=== PATIENT | female | born 1960 ===

== ENCOUNTER 2023-10-25 08:49 | Outpatient (REF) | payer OTHER, SELFPAY | END 2023-10-25 08:50 | disposition home or self-care (01) | LOC: HO.SH 08:49 | PROVIDERS: Visit Provider Physician Assistant Medical | DX: Z01.118 Encounter for examination of ears and hearing with other abnormal findings (principal); H90.3 Sensorineural hearing loss, bilateral | CPT/HCPCS: 92557; 92567 ==

== ENCOUNTER 2024-06-05 08:11 | Outpatient (REF) | payer OTHER, SELFPAY ==
--- NOTE | 2024-06-05 09:35 | MHC.AU.HA1 ---
Hearing Aid Evaluation Date of Visit: 06/05/24 Historical Information: Description of Hearing: Right Ear: Within normal sloping to moderate sensorineural hearing loss rising to normal hearing; Left Ear: Within normal sloping to mild sensorineural hearing loss rising to normal hearing Summary: Ready to pursue amplification. HAs recommended many years ago; however, not ready at that time. Now noticing increasing hearing difficulties, frequently asking for repetition or speakers to talk louder, uses CC on television. Still unsure about TOWNSEND use but hoping HAs will ease some communication difficulties. Discussed importance of daily, consistent use as Lolita is hesitant to wear HAs out due to vanity concerns. Opted to trial rechargeable RITE compatible with Android phone. Hearing Aid Prescription: Based on the individual?s shared listening needs, communication environments, dexterity, desire for connectivity, and personal preferences, the following prescription for amplification has been made: Right ear: Make, Model, Color: Phonak Audeo L70-R Color: Sun Battery Size: Rechargeable Senior Property Accountant/Slim Tube: 2M Type of Earmold/Dome/CShell/SlimTip: Cap dome Left ear: Left ear prescription to be same as Right Hearing Aid above: Make, Model, Color: Phonak Audeo L70-R Color: Sun Battery Size: Rechargeable Senior Property Accountant/Slim Tube: 2M Type of Earmold/Dome/CShell/SlimTip: Cap dome Accessories/Assistive Technology: Pattern Clerk Plan of Care: Patient wishes to purchase hearing aids as prescribed Action Taken/Action Needed: Hearing Instrument Fitting to be scheduled when materials arrive Primary Diagnosis: H90.3 Bilateral Sensorineural Hearing Loss Signature: Provider: Todd Orellana, [facility]
== END 2024-06-05 08:12 | disposition home or self-care (01) ==
LOC: HO.SH 08:11
PROVIDERS: Visit Provider Physician Assistant Medical
DX: Z01.118 Encounter for examination of ears and hearing with other abnormal findings (principal); Z46.1 Encounter for fitting and adjustment of hearing aid; H90.3 Sensorineural hearing loss, bilateral
CPT/HCPCS: 92552; 92556; 92591

== ENCOUNTER 2024-06-18 12:47 | Outpatient (REF) | payer OTHER, SELFPAY ==
--- NOTE | 2024-06-18 13:35 | MHC.AU.HA2 ---
Hearing Instrument Fitting- Adult- Binaural Date of Visit: 06/18/24 Hearing Instruments Dispensed: Right Ear: Make, Model, Color, Serial Number: David Waller [id number]-[id number] SN: [id number] Color: White Nurse Monitoring Repair Warranty: 07/04/2027 Nurse Monitoring Loss and Damage Warranty: 07/04/2027 [facility] Service Plan: 06/18/2025 Battery Size: Rechargeable Medical Device/Slim Tube: 1M Earmold/Dome/CShell/SlimTip: Cap dome (no retention tail) Type of Wax Guard: CeruStop Left Ear: Make, Model, Color, Serial Number: David Waller [id number]-[id number] SN: [id number] Color: White Nurse Monitoring Repair Warranty: 07/04/2027 Nurse Monitoring Loss and Damage Warranty: 07/04/2027 [facility] Service Plan: 06/18/2025 Battery Size: Rechargeable Medical Device/Slim Tube: 1M Earmold/Dome/CShell/SlimTip: Cap dome (no retention tail) Type of Wax Guard: CeruStop Accessories/Assistive Technology: Phonak In Store Banker Ease SN: [id number] Summary of Fitting: Accompanied by father. Ran feedback analyzer and real ear measures. Slightly loud but comfortable at real ear settings, will use VC as needed. Discussed care, use, and rechargeability including manually turning on/off, VC use, changing domes and wax guards. Practiced insertion and removal. Hesitant to fully insert - advised to minimize gap between head and nozzle worker wire. Did not discuss bluetooth yet, will do at follow up. Recommendations: A hearing instrument follow-up was scheduled. Diagnosis Code(s): Primary Diagnosis: H90.3 Bilateral Sensorineural Hearing Loss Signature: Provider: Todd Orellana, [facility]
== END 2024-06-18 12:48 | disposition home or self-care (01) ==
LOC: HO.HAP 12:47
PROVIDERS: Visit Provider Otolaryngology
DX: Z46.1 Encounter for fitting and adjustment of hearing aid (principal); H90.3 Sensorineural hearing loss, bilateral
CPT/HCPCS: V5011; V5020; V5160; V5261

== ENCOUNTER 2024-10-09 15:36 | Outpatient (REF) | payer OTHER, SELFPAY ==
--- OUTSIDE RECORDS SUMMARY | 2024-10-09 18:14 | XMS_ITS | Clinical Summary ---
Author Organization [facility] Address [address] [place] [address] Phone Care Team Providers Care Director Of Retail Marketing Name Role Phone Madelyn Hogan MD Primary Care Provider Allergies No known active allergies Medications polyethylene glycol (PEG) 17 gram/dose oral powder DISSOLVE 1 CAPFUL (17GM) IN LIQUID AND DRINK BY MOUTH DAILY 510 g 11 07/19/19 25 Active B complex tablet Take 1 tablet by mouth 1 (one) time each day. Active magnesium citrate 125 mg capsule Take 2 capsules by mouth 1 (one) time each day. Active clonazePAM (KlonoPIN) 1 mg tablet Take 1 tablet (1 mg total) by mouth 1 (one) time each day if needed for anxiety. Max Daily Amount: 1 mg 5 tablet 09/07/19 25 Active hydroCHLOROthi azide (MICROZIDE) 12.5 mg capsule Take 1 capsule (12.5 mg total) by mouth 1 (one) time each day in the morning. 90 capsule 1 09/20/19 25 Active amLODIPine (NORVASC) 5 mg tablet Take 1 tablet (5 mg total) by mouth 1 (one) time each day. 09/25/19 25 025 Active amLODIPine (NORVASC) 5 mg tablet Take 1 tablet (5 mg total) by mouth 1 (one) time each day. 90 tablet 06/20/19 25 025 Discontinued hydroCHLOROthi azide (MICROZIDE) 12.5 mg capsule Take 1 capsule (12.5 mg total) by mouth 1 (one) time each day in the morning. 90 capsule 06/20/19 25 025 Discontinued(Re order) docusate sodium (COLACE) 100 mg capsule Take 1 capsule (100 mg total) by mouth 2 (two) times a day for 10 days. 09/07/19 25 025 buPROPion (WELLBUTRIN) 75 mg tabletIndicati ons:Chronic anxiety Take 0.5 tablets (37.5 mg total) by mouth 1 (one) time each day. 15 tablet 09/07/19 25 025 Discontinued amLODIPine (NORVASC) 10 mg tablet Take 1 tablet (10 mg total) by mouth 1 (one) time each day. 30 each 5 09/11/19 025 Discontinued(Th erapy completed) Active Problems Problem Noted Date Diagnosed Date Pain associated with defecation 02/24/2023 Hyperlipidemia 08/31/2020 Overview (05/28/2024): 5%, if smoking continues- 10.3% Pulmonary nodule 12/07/2017 Overview (05/28/2024): RLL, LungRad Category 2, 10/07/2016 Lung CA Screen Program, continue annual screening. Anxiety 09/29/2017 Overview (05/28/2024): Panic disorder 07/14/2017 HTN (hypertension) 09/29/2017 Overview (05/28/2024): Ascvd 2.4% Encounters Date Type Department Care Team Description 09/24/2024 2:00 PM EDT Office Visit Adult [address] [phone] Mdaelyn Hogan MD Chronic anxiety (Primary Dx); Primary hypertension 09/10/2024 3:15 PM EDT Office Visit Adult [address] [phone] John Hoffmann PA Primary hypertension (Primary Dx); Anxiety 09/09/2024 Telephone Adult [address] [phone] Madelyn Hogan MD Hypertension 09/06/2024 11:15 AM EDT Office Visit Adult Medicine [facility] [address] [place] [phone] Madelyn Hogan MD Primary hypertension (Primary Dx); Chronic anxiety; Osteopenia, unspecified location; Dense breast tissue on mammogram, unspecified type; Chronic constipation 08/01/2024 10:30 AM EST Consult Endocrinology [address] [phone] Ryan Price MD Osteopenia, unspecified location (Primary Dx) from Last 3 Months Immunizations Name Administration Dates Next Due Influenza Quadrivalent, 0.5m l, preservative free (Fluarix; FluLaval; Fluzone) ages 6mo and older (Afluria) 3yo and older 04/21/2020 Influenza Whole 03/31/2010,03/24/2008,05/25/2007 Influenza trivalent, 0.5mL, preservative free (Fluarix; FluLaval; Fluzone) ages 6mo and older (Afluria) 3 years and older 04/21/2020,07/08/2016,03/11/2012 Influenza trivalent, with pr eservative (Fluzone; Afluria) 6mo and older 07/14/2017,07/08/2016,07/03/2015,05/01,04/19/2013,03/12/2012,03/11/2012 ,03/03/2011,05/19/2009 Influenza, Unspecified 03/31/2010,03/24/2008,12/2006 Pfizer SARS-CoV-2 COVID-19, mRNA, LNP-S, preservative free 06/15/2021 Pneumococcal polysaccharide 23 valent (Pneumovax 23) 2yo and older 11/13/2008 Tdap Tetanus diptheria acell ular pertussis (Boostrix; Adacel) 7yo and older 12/15/2017,07/14/2017,09/24/2007 Surgical History Surgery Date Site/Laterality Comments TUBAL LIGATION PROCEDURE: HISTORICAL TUBAL LIGATION TONSILLECTOMY PROCEDURE: HISTORICAL TONSILLECTOMY COLONOSCOPY 11/22/2010 PROCEDURE: HISTORICAL COLONOSCOPY; COMMENT: neg, repeat 10 yrs SECTION PROCEDURE: HISTORICAL DELIVERY Medical History Medical History Date Comments Pulmonary nodule 12/07/2017 DX:Pulmonary no dule; COMMENT: RLL, LungRad Category 2, 10/07/2016 Lung CA Screen Program, continue annual screening. 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 Hyperlipidemia DX:Hyperlipidemi a Family History Medical History Relation Name Comments Dementia Father Other: nephrolithiasis Father No Known Problems Maternal Grandfather Hypertension Maternal Grandmother Alzheim er's Disease Hypertension Mother afib Liver disease Paternal Grandfather ETOH Pancreatic cancer Paternal Grandmother Hypertension Sister 1 Relation Name Status Comments Father Alive Maternal Grandfather Maternal Grandmother Mother Alive Paternal Grandfather Paternal Grandmother Sister 1 Alive Sister 2 Alive Social History Tobacco Use Types Packs/Day Years Used Date Smoking Tobacco: Former Cigarettes Q uit: 01/17/2022 Smokeless Tobacco: Never Tobacco Cessation:Counseling Given: Not Answered Alcohol Use Standard Drinks/Week Comments Not Currently 0 (1 standard drink = 0.6 oz pur e alcohol) Comments No Sex and Gender Information Value Date Recorded Sex Assigned at Not on file Legal Sex Female 6:01 PM EST Gender Identity Not on file Sexual Orientation Not on file Obstetrics History Last Filed Vital Signs Vital Sign Reading Time Taken Comments Blood Pressure 124/76 09/24/2024 2:05 PM EDT Pulse 68 09/24/2024 2:05 PM EDT Temperature 36.3 ??C (97.4 ??F) 09/24/2024 2:05 PM ED T Respiratory Rate 16 09/24/2024 2:05 PM EDT Oxygen Saturation 97% 08/01/2024 10:26 AM EST Inhaled Oxygen Concentration - - Weight 70.3 kg (155 lb) 09/24/2024 2:05 PM EDT Height 165 cm (5' 4.96 ) 09/24/2024 2:05 PM EDT Body Mass Index 25.82 09/24/2024 2:05 PM EDT Plan of Treatment Upcoming Encounters Date Type Department Care Team (Late st Contact Info) Description 10/24/2024 3:30 PM EDT Office Visit Adult Medicine [facility] [address] [place] [phone] Madelyn Hogan MD [address] [place] [address] 01/03/2025 10:00 AM EDT Office Visit Adult Medicine [facility] [address] [place] [phone] John Granados PA [address] [place] [address] Health Maintenance Due Date Last Done Comments Pneumococcal Vaccine: 50+ Years (2 of 2 - PCV) 2010 11/13/2008 Zoster Vaccines (1 of 2) 2010 HIV Screening 05/28/2022 Social Influencers of Health Screening 05/28/2022 COVID-19 Vaccine ( - season) 2024 06/15/2021, 08/18/2020, 07/25/2020 Depression Screening 12/14/2024 12/15/2023 Influenza Vaccine (Season Ended) 2025 04/21/2020, 04/21/2020, 07/14/2017, Additional history exists Hypertension/CHF/CAD Annual BMP Blood Test 09/10/2025 09/10/2024, 08/07/2024, 12/15/2023, Additional history exists Cervical Cancer Screening: HPV 05/10/2026 05/10/2021 Breast Cancer Screening 08/20/2026 08/20/2024 DTaP,Tdap,and Td Vaccines (4 - Td or Tdap) 12/16/2027 12/15/2017, 07/14/2017, 09/24/2007 Cholesterol Screening (Lipid Panel) 09/10/2029 09/10/2024, 12/15/2023, 12/15/2023 Colorectal Cancer Screening: Colonoscopy 03/07/2033 03/07/2023 RSV Immunization Adult Patients (1 - 1-dose 75+ series) 2035 Pneumococcal Vaccine: Pediatrics (0 to 5 Years) and At-Risk Patients (6 to 64 Years) Aged Out 11/13/2008 No longer eligible based on patient's age to complete this topic Hepatitis C Screening Completed 11/03/2017 HIB Vaccines Aged Out No longer eligi ble based on patient's age to complete this topic HPV Vaccines Aged Out No longer eligi ble based on patient's age to complete this topic Hepatitis A Vaccines Aged Out No long er eligible based on patient's age to complete this topic Hepatitis B Vaccines Aged Out No long er eligible based on patient's age to complete this topic IPV Vaccines Aged Out No longer eligi ble based on patient's age to complete this topic MMR Vaccines Aged Out No longer eligi ble based on patient's age to complete this topic Meningococcal ACWY Vaccine Aged Out N o longer eligible based on patient's age to complete this topic Meningococcal B Vaccine Aged Out No l onger eligible based on patient's age to complete this topic RSV Immunization Patients Under 20 months Aged Out No longer eligible based on patient's age to complete this topic Varicella Vaccines Aged Out No longer eligible based on patient's age to complete this topic Procedures Procedure Name Priority Date/Time Associated Diagnosis Comments COMPREHENSIVE METABOLIC PANEL Routine 09/10/2024 11:01 AM EDT Primary hypertension LIPID PANEL WITH REFLEX TO DIRECT LDL Routine 09/10/2024 11:01 AM EDT Primary hypertension EXTERNAL MAMMOGRAM REPORT 08/20/2024 RI PROTEIN ELECTROPHORETIC FRACTIONATION & QUANTITATION SERUM Routine 08/07/2024 10:46 AM EST Osteopenia, unspecified location PROTEIN, TOTAL Routine 08/07/2024 10:46 AM EST Osteopenia, unspecified location CALCIUM, URINE, 24H Routine 08/07/2024 1 0:46 AM EST Osteopenia, unspecified location ALBUMIN Routine 08/07/2024 10:46 AM EST Osteopenia, unspecified location VITAMIN D 25 HYDROXY Routine 08/07/2024 10:46 AM EST Osteopenia, unspecified location PROTEIN ELECTROPHORESIS, SERUM Routine 08/07/2024 10:46 AM EST Osteopenia, unspecified location PARATHYROID HORMONE INTACT Routine 08/07/2024 10:46 AM EST Osteopenia, unspecified location BUN Routine 08/07/2024 10:46 AM EST Osteopenia, unspecified location CREATININE, SERUM Routine 08/07/2024 10: 46 AM EST Osteopenia, unspecified location CALCIUM Routine 08/07/2024 10:46 AM EST Osteopenia, unspecified location HM DEPRESSION SCREENING Routine 12/15/2023 HM COLONOSCOPY Routine 03/07/2023 HM HPV Routine 05/10/2021 HEPATITIS C SCREENING Routine 11/03/2017 from Last 3 Months or Most Recently Relevant to Health Maintenance Results * (ABNORMAL) Lipid panel with reflex to direct LDL (09/10/2024 11:01 AM EDT) Cholesterol 205(H) 0 - 200 mg/dL LAB CHEMISTRY METHOD 09/10/2024 4:21 PM EDT [facility] Triglycerides 86 0 - 150 mg/dL LAB CHEMISTRY METHOD 09/10/2024 4:21 PM EDT [facility] HDL 59 >=40 mg/dL LAB CHEMISTRY METHOD 09/10/2024 4:21 PM EDT [facility] LDL Calculated 129(H) 0 - 100 mg/dL LAB CHEMISTRY METHOD 09/10/2024 4:21 PM [facility] VLDL Cholesterol Jules 17.2 mg/dL LAB CHEMISTRY METHOD 09/10/2024 4:21 PM EDT [facility] Non HDL Chol. (LDL+VLDL) 146(H) <145 mg/dL LAB CHEMISTRY METHOD 09/10/2024 4:21 PM [facility] Chol/HDL Ratio 3.5 0.0 - 4.4 LAB CHEMISTRY METHOD 09/10/2024 4:21 PM [facility] Blood Venous blood specimen / Unknown Venipuncture / Unknown 09/10/2024 11:01 AM EDT 09/10/2024 11:01 AM EDT us Madelyn Hogan MD LAB BLOOD ORDERABLES F inal Result [facility] [address] [place] [address], * Comprehensive metabolic panel (09/10/2024 11:01 AM EDT) Sodium 136 133 - 145 mmol/L LAB CHEMISTRY METHOD 09/10/2024 4:21 PM [facility] Potassium 3.7 3.5 - 5.5 mmol/L LAB CHEMISTRY METHOD 09/10/2024 4:21 PM [facility] Chloride 102 96 - 110 mmol/L LAB CHEMISTRY METHOD 09/10/2024 4:21 PM [facility] CO2 27 21 - 32 mmol/L LAB CHEMISTRY METHOD 09/10/2024 4:21 PM [facility] Anion Gap 7 3 - 11 LAB CHEMISTRY METHOD 09/10/2024 4:21 PM [facility] Glucose 84 70 - 100 mg/dL LAB CHEMISTRY METHOD 09/10/2024 4:21 PM [facility] BUN 16 5 - 25 mg/dL LAB CHEMISTRY METHOD 09/10/2024 4:21 PM [facility] Creatinine 0.74 0.50 - 1.10 mg/dL LAB CHEMISTRY METHOD 09/10/2024 4:21 PM [facility] eGFR 90 >=60 mL/min/1. 73m2 LAB CHEMISTRY METHOD 09/10/2024 4:21 PM EDT [facility] Comment:Calculation based on the??Chronic Kidney Disease Epidemiology Collaboration (CKD-EPI) equation refit??without adjustment for race. BUN/Creatinine Ratio 21.6 LAB CHEMISTRY METHOD 09/10/2024 4:21 PM EDT [facility] Calcium 9.0 8.5 - 10.5 mg/dL LAB CHEMISTRY METHOD 09/10/2024 4:21 PM [facility] AST (SGOT) 15 10 - 42 unit/L LAB CHEMISTRY METHOD 09/10/2024 4:21 PM [facility] ALT (SGPT) 25 10 - 60 unit/L LAB CHEMISTRY METHOD 09/10/2024 4:21 PM [facility] Alkaline Phosphatase 69 42 - 121 unit/L LAB CHEMISTRY METHOD 09/10/2024 4:21 PM T [facility] Total Protein 7.1 6.0 - 8.0 g/dL LAB CHEMISTRY METHOD 09/10/2024 4:21 PM [facility] Albumin 4.3 3.2 - 5.0 g/dL LAB CHEMISTRY METHOD 09/10/2024 4:21 PM [facility] Total Bilirubin 0.6 0.0 - 1.4 mg/dL LAB CHEMISTRY METHOD 09/10/2024 4:21 PM [facility] Blood Venous blood specimen / Unknown Venipuncture / Unknown 09/10/2024 11:01 AM EDT 09/10/2024 11:01 AM EDT us Madelyn Hogan MD LAB BLOOD ORDERABLES F inal Result [facility] [address] [place] [address], * External Mammogram Report (08/20/2024) Anatomical Region Laterality Modality Mammography Provider [facility] BI PROCEDURES Final Result * PATHOLOGIST REVIEW PROTEIN ELECTROPHORESIS (08/07/2024 10:46 AM EST) Pathologist Interpretation Darcie Phillips MD 08/09/2024 2:30 PM EST [facility] Blood Venous blood specimen / Unknown Venipuncture / Unknown 08/07/2024 10:46 AM EST 08/07/2024 10:46 AM EST Ryan Price MD LAB BLOOD ORDERABLES Final Resul t Performing Organization Address [facility]/ZIP Co de Phone Number [facility] [address] [place] [address], [place] [phone] * Calcium, urine, 24H (08/07/2024 10:46 AM EST) Calcium, Ur 6.0 mg/dL LAB CHEMISTRY METHOD 08/07/2024 2:46 PM EST [facility] Calcium, 24H Urine 180 50 - 400 mg/24 hr LAB CHEMISTRY METHOD 08/07/2024 2:46 PM [facility] Urine Volume 3,000 mL LAB CHEMISTRY METHOD 08/07/2024 2:46 PM [facility] Collection Interval, Ur 24 hr LAB CHEMISTRY METHOD 08/07/2024 2:46 PM [facility] Urine Urine specimen from urethra / Unknown Non-blood Collection / Unknown 08/07/2024 10:46 AM EST 08/07/2024 10:46 AM EST Ryan Price MD LAB URINE ORDERABLES Final Resul t Performing Organization Address [facility]/ZIP Co de Phone Number [facility] [address] [place] [address], [place] [phone] * Creatinine (08/07/2024 10:46 AM EST) Creatinine 0.63 0.50 - 1.10 mg/dL LAB CHEMISTRY METHOD 08/07/2024 1:12 PM EST [facility] eGFR 99 >=60 mL/min/1. 73m2 LAB CHEMISTRY METHOD 08/07/2024 1:12 PM EST [facility] Comment:Calculation based on the??Chronic Kidney Disease Epidemiology Collaboration (CKD-EPI) equation refit??without adjustment for race. Blood Venous blood specimen / Unknown Venipuncture / Unknown 08/07/2024 10:46 AM EST 08/07/2024 10:46 AM EST Ryan Price MD LAB BLOOD ORDERABLES Final Resul t Performing Organization Address [facility]/ZIP Co de Phone Number [facility] [address] [place] [address], [place] [phone] * (ABNORMAL) Vitamin D 25 hydroxy (08/07/2024 10:46 AM EST) Vit D, 25-Hydroxy 28.2(L) 30.0 - 80.0 ng/mL LAB CHEMISTRY METHOD 08/07/2024 1:22 PM EST [facility] Blood Venous blood specimen / Unknown Venipuncture / Unknown 08/07/2024 10:46 AM EST 08/07/2024 10:46 AM EST Ryan Price MD LAB BLOOD ORDERABLES Final Resul t [facility] [address] [place] [address], [place] [phone] * BUN (08/07/2024 10:46 AM EST) BUN 19 5 - 25 mg/dL LAB CHEMISTRY METHOD 08/07/2024 1:12 PM [facility] Blood Venous blood specimen / Unknown Venipuncture / Unknown 08/07/2024 10:46 AM EST 08/07/2024 10:46 AM EST us Ryan Price MD LAB BLOOD ORDERABLES Final Resul t [facility] [address] [place] [address], [place] [phone] * Protein electrophoresis, serum (08/07/2024 10:46 AM EST) Total Protein 7.1 6.0 - 8.0 g/dL LAB CHEMISTRY METHOD 08/09/2024 2:30 PM [facility] Albumin, Serum 4.1 2.9 - 4.1 g/dL LAB CHEMISTRY METHOD 08/09/2024 2:30 PM EST [facility] Alpha 1 Globulin (g/dL) 0.2 0.1 - 0.5 g/dL LAB CHEMISTRY METHOD 08/09/2024 2:30 PM [facility] Alpha 2 Globulin (g/dL) 0.9 0.7 - 1.5 g/dL LAB CHEMISTRY METHOD 08/09/2024 2:30 PM [facility] Beta (g/dL) 0.9 0.7 - 1.5 g/dL LAB CHEMISTRY METHOD 08/09/2024 2:30 PM EST [facility] Gamma Globulin (g/dL) 1.0 0.7 - 1.9 g/dL LAB CHEMISTRY METHOD 08/09/2024 2:30 PM [facility] SPEP Interpretation Essentially normal pattern. No M-Nestor seen. LAB CHEMISTRY METHOD 08/09/2024 2:30 PM [facility] Blood Venous blood specimen / Unknown Venipuncture / Unknown 08/07/2024 10:46 AM EST 08/07/2024 10:46 AM EST Ryan Price MD LAB BLOOD ORDERABLES Final Resul t Performing Organization Address [facility] de Phone Number [facility] [address] [place] [address], * Protein, total (08/07/2024 10:46 AM EST) Total Protein 7.1 6.0 - 8.0 g/dL LAB CHEMISTRY METHOD 08/07/2024 1:14 PM EST [facility] Blood Venous blood specimen / Unknown Venipuncture / Unknown 08/07/2024 10:46 AM EST 08/07/2024 10:46 AM EST Ryan Price MD LAB BLOOD ORDERABLES Final Resul t Performing Organization Address [facility] de Phone Number [facility] [address] [place] [address], * Parathyroid hormone intact (08/07/2024 10:46 AM EST) PTH 71.0 18.5 - 88.0 pcg/mL LAB CHEMISTRY METHOD 08/07/2024 1:23 PM EST [facility] Blood Venous blood specimen / Unknown Venipuncture / Unknown 08/07/2024 10:46 AM EST 08/07/2024 10:46 AM EST Ryan Price MD LAB BLOOD ORDERABLES Final Resul t Performing Organization Address [facility] Co de Phone Number [facility] [address] [place] [address], [place] [phone] * Calcium (08/07/2024 10:46 AM EST) Calcium 9.3 8.5 - 10.5 mg/dL LAB CHEMISTRY METHOD 08/07/2024 1:12 PM EST [facility] Blood Venous blood specimen / Unknown Venipuncture / Unknown 08/07/2024 10:46 AM EST 08/07/2024 10:46 AM EST Ryan Price MD LAB BLOOD ORDERABLES Final Resul t [facility] [address] [place] [address], [place] [phone] * Albumin (08/07/2024 10:46 AM EST) [facility] Albumin 4.1 3.2 - 5.0 g/dL LAB CHEMISTRY METHOD 08/07/2024 1:12 PM EST [facility] Blood Venous blood specimen / Unknown Venipuncture / Unknown 08/07/2024 10:46 AM EST 08/07/2024 10:46 AM EST Ryan Price MD LAB BLOOD ORDERABLES Final Resul t [facility] [address] [place] [address], [place] [phone] * Depression Screening (12/15/2023) [facility] Depression Screening abstracted [facility] [employer] Final Result * Colonoscopy (03/07/2023) [facility] Colonoscopy normal, abstracted Anatomical Region Laterality Modality Other [facility] [employer] Final Result * Cervical Cancer Screening: HPV (05/10/2021) [facility] Cervical Cancer Screening: HPV negative, abstracted [facility] [employer] Final Result * Hepatitis C Screening (11/03/2017) [facility] Hepatitis C Screening abstracted [facility] [employer] Final Result from Last 3 Months or Most Recently Relevant to Health Maintenance Insurance [facility] Care Teams Director Of Retail Marketing Relationship Specialty Start Date End Date Madelyn Hogan MD [address] [place] [address] [id number] PCP - General Internal Medicine 05/07/24
--- OUTSIDE RECORDS SUMMARY | 2024-10-09 18:14 | XMS_ITS | Data Portability ---
Author Organization [place] - [facility], Allergy Address [address] [address] Care Team Providers Care Laboratory Helper Name Role Phone NATTY POLLARD Primary Care Provider Assessment Encounter Date Assessment Date Assessment LastModified by Organization Details LastModified Time 06/28/2024 06/28/2024 64 year old female presents for review of MRI IAC. Reviewed with patient that there was no retrocochlear pathology on MRI. Patient brings in a May 2024 audiogram for review which is stable from prior. We do recommend hearing aids given her level of hearing loss bilaterally. We discussed in detail the pros and cons of amplification (hearing aids). We discussed the connection between untreated hearing loss and increased risk of dementia, falling and accidents. Discussed that she can trial over the counter Flonase to see if that improves her intermittent blockage sensations at night. Recommend repeat audiometric testing in 2 years. [email or web address] Not available 06/28/2024 13:21:08 Plan of Treatment Reminders Order Date Submit Date Provider Last Modified By Organization Details Last Modified Time Details Appointments None recorded. Lab None recorded. Referral None recorded. Procedures None recorded. Surgeries None recorded. Imaging MRI, brain + internal auditory canal, w/wo contrast - MRI, BRAIN + INTERNAL AUDITORY CANAL, W/WO CONTRAST 2023 024 [facility] ([facility]), 80 [facility], [place], [address], 16:17:23 Medication Orders None recorded. Patient TargetsNo targets recorded. Patient InstructionsNo instructions recorded. Reason for Referral None Reported. Results Created Date Observation Date Name Description Value Unit Range Abnormal Flag Note LastModifiedBy Organization Detail LastModifiedTime 05/13/20 24 05/13/2024 audio gram No observ ation record ed. [email or web address] [facility] Speech & Hearing [facility] 30 [facility] [place], [address], 05/15/2024 10:37:32 05/13/20 24 10/25/2023 audio gram No observ ation record ed. BARCODE Not Available 2023 16:26:20 05/24/20 24 05/23/2024 MRI, brain + brain stem, w/wo contr ast [facility] Access ion Number : [id number] Anastasiia martin Name: Omega aden, Lolita Medica l Record Number : [id number] Date of : 1959 Date of Exam: 2023 Referr ing Physic atiya: Tarun story, Lizzie [facility] [place] [address] [place] [address] Exam: MR Brain (C-/C+ ) CPT 15983 Room Descri ption: [facility] Espr 1.5 MR Brain (C-/C+ ) CPT 40598 INDICA TION / CLINIC AL QUESTI ON: H90.A2 1 - Snsrnr l hear loss, uni, r ear, with rstrcd hear cntra side, Clinic al Indica tion: Asymme tric sensor ineura l hearin g loss TECHNI QUE: Multip lanar, multis equenc e MRI of the brain was perfor med with and withou t intrav enous contra st. 15 mL Dotare m intrav enous contra st was admini stered . COMPAR CHRISTI: None. FINDIN GS: IAC: There is no mass or abnorm al enhanc ement in the application support intern al audito ry canals or cerebe llopon vaishnavi angles . Course and calibe r of the 7th and 8th crania l nerves is normal bilate rally. Fluid signal is preser ronnie in the inner ear struct ures bilate rally. Brains tem demons trates normal signal . BRAIN and EXTRA- AXIAL SPACES : No signif icant abnorm ality of the visual ized portio ns of the brain and extra- axial spaces . EXTRAC RANIAL SOFT TISSUE S: Visual ized portio ns of the extrac ranial soft tissue s demons trate no acute abnorm ality. Symmet brock lobula r T2 hyperi ntense signal in the subcut aneous fat of the cheeks , greate st in the region of the nasola bial folds, may reflec t sequel ae of cosmet ic inject ions. BONES: Visual ized marrow signal is preser ronnie. IMPRES LAZ: No retroc ochlea r abnorm ality to explai n the patien t?s sympto ms. Electr onical ly Signed By: Adolfo Aleman MD [facility] ([facility]) [address], [place], [address], 05/30/2024 09:06:42 07/01/1906/05/2024 audio gram No observ ation record ed. [email or web address] Not Available 06/19 14:32:20 07/01/19 25 05/24/2024 MRI, brain , w/wo contr ast No observ ation record ed. [email or web address] Not Available 06/19 17:05:01 Result Notes None recorded. Problems Name Problem SNOMED Code Status Onset Date Resolution Date Notes Provider Name and Address Organization Details Recorded Time Unilatera l sensorine ural hearing loss with unrestric reese hearing on the contralat eral side Active 2013 SNHL Unilatera lly; CMS Risk: low risk CMS Treatment : establish ed problem (to examiner) : stable or improved Note: Date Diagnosed : 03/21/2014 10:41 AM (389.15) Not Available [facility] 4 03:04:34 Sensorine ural hearing loss in right ear [id number] 100 Active 2023 LIZZIE WARNER MD [address] [place] [address],[place] [address], [place], [address] , [facility] - [facility] 4 10:30:42 Bilateral tinnitus 76279494639 02 Active 2023 LIZZIE WARNER MD [address] [place] [address],[place] [address], [place], [address] , [facility] - [facility] 4 10:31:35 Asymmetri taylor sensorine ural hearing loss 566198747 Active 2024 DEACON PUCKETT PA-C 100 [facility] 100, [place], [address] , [place] - [facility] 13:15:34 Problem Notes None recorded. Procedures Surgical History None recorded. Imaging Results Imaging Date Name Status LastModified by Organiz ation Details LastModified Time 05/13/2024 audiogram completed [email or web address] [facility] 30 [facility] [place], [address], 05/15/2024 10:37:32 10/25/2023 audiogram completed BARCODE Information no t available 05/13/2024 16:26:20 05/23/2024 MRI, brain + brain stem, w/wo contrast completed [facility] ([facility]) [address] [facility], [place], [address], 05/30/2024 09:06:42 06/05/2024 audiogram completed [email or web address] Information n ot available 07/01/2024 14:32:20 05/24/2024 MRI, brain, w/wo contrast completed [email or web address] Information not available 07/02/2024 17:05:01 Procedure Notes None recorded. Medical Equipment None Reported. Allergies No known drug allergies Medications Name Sig Start Date Stop Date Status Note LastModified by Organization Details LastModified Time lisinopril 20 mg-hydroch lorothiazi de 12.5 mg tablet 2013 active Medicatio n ID: [id number] Dura tion Value: 30 Brand Name: lisinopri l-hydroch lorothiaz bernard Send Method: E-Prescri bed Subs Allowed: subs OK Medica tionGener icName: lisinopri l-hydroch lorothiaz bernard Not Available Not Available Not Available clonazepam 1 mg tablet TAKE ONE TABLET BY MOUTH EVERY DAY NEEDED FOR ANXIETY active Not Available Not Available No t Available amlodipine 5 mg tablet TAKE ONE TABLET BY MOUTH EVERY DAY active Not Available Not Available No t Available hydrochlor othiazide 12.5 mg capsule TAKE ONE CAPSULE BY MOUTH IN THE MORNING active Not Available Not Available No t Available polyethyle ne glycol 3350 17 gram/dose oral powder DISSOLVE 1 CAPFUL 17GM) IN LIQUID AND DRINK BY MOUTH DAILY active Not Available Not Available No t Available Vitals Date Recorded Body height Body mass index (BMI) Body weight Provider Name and Address Organization Details Last Updated DateTime 05/14/2024 162.56 cm 26.4 kg/m2 66050.22 g Marika Brewer [place] - [facility] 05/14/2024 10:11:05 Date Recorded Body height Body weight Provider Name and Address Organization Details Last Updated DateTime 06/28/2024 162.56 cm 30267.22 g Radha Perez [place] - [facility] 06/28/2024 12:56:52 Social History None recorded. Functional Status None recorded. Mental Status None recorded. Family History Nothing Reported. Medical History Condition Response Allergies/Hayfever Y Heart Problems N Anxiety Y Tonsil Infections N Emphysema N Migraines N Thyroid Problems N Glaucoma N Depression N COPD N Developmental Delay N Nasal or Sinus Problems N Anemia N Immune System Disorder N Anesthesia Complications N Heart Attack (TN) N Other Skin Condition N Diabetes N Rhinitis N Bleeding Disorder N Food Allergy N Arthritis N Hearing Loss Y Hyperlipidemia N Cancer N Stroke N Dementia N Nasal polyps N Asthma N High Cholesterol Y Sleep Disorder N GERD/Reflux N Liver Disease N Headaches N Fibromyalgia N Hypertension Y Speech Delay N Kidney Disease N Gynecological HistoryNo gynecological history recorded. Obstetrics History GPAL:G 0 P 0 0 0 0 Past Encounters Encounter ID Performer Location Encounter Start Date Encounter Closed Date Diagnosis/Indication Diagnosis SNOMED-CT Code Diagnosis ICD10 Code Diagnosis Note [id number] LIZZIE WARNER MD [facility] [address] [address] 05/14/2024 09:53:03 05/14/2024 10:40:25 Sensorineural hearing loss in right ear [id number] 9100 H90.A21 Given the asymmetric hearing loss I recommend an MRI IAC with contrast to evaluate for retrocochl ear pathology. We will review results when complete. Bilateral tinnitus 05483 18142 102 H93.13 Ear exam was normal. Audiogram was reviewed. We discussed the associatio n between sensorineu ral hearing loss and tinnitus. We discussed masking for tinnitus. [id number] LIZZIE WARNER MD [facility] [address] [place] [address] 06/28/2024 12:55:36 06/28/2024 13:15:20 Bilateral tinnitus 9435841376 102 H93.13 Asymmetric al sensorineural hearing loss 370089317 H90.5 Health Concerns Section Related Observation LastModified by Organization Detai ls LastModified Time None Recorded Concern Status LastModified by Organization Details LastModified Time None Recorded Advance Directives Directive None Recorded Payers Encounter Date Sequence Insurance Name Policy Number Policy Tee Covered Member ID Tee Member ID Guarantor Name 05/14/2024 1 [facility] (MEDICAID REPLACEMENT - HMO) [employer] Lolita V Gilberti [id number] Lolita V Gilberti 06/28/2024 1 [facility] (MEDICAID REPLACEMENT - HMO) [employer] Lolita V Gilberti [id number] Lolita V Gilberti Notes Date Note Type Note Provider Name and Address Organization Details Recorded Time 05/14/2024 text/html She reports gradual hearing loss over time. About 7 years ago she noted some asymmetry. She had an audiogram 10/2023 which showed asymmetric SNHL worse AD. Has tinnitus AU. It varies in intensity. She has not yet used hearing aids. Her mother has hearing loss. Hx loud noise exposure as a child when she was younger. LIZZIE WARNER MD [address] [place] [address], [phone], [facility] 05/14/2024 10:36:46 06/28/2024 text/html 64 year old sophia diallo presents to the office to review her MRI IAC. She reports bilateral tinnitus. She was recently fitted for hearing aids and has had some difficulty adjusting to them. She is a bit self conscious about needing them at her age. She also notes that at night when she lays on her ear she has an intermittent blockage sensation that improves if she shifts off of that side. It happens to both ears. LIZZIE WARNER MD [address] [place] [address],[address], [address], [facility] 06/28/2024 14:23:35 OBGyn Episode No OBEpisode recorded.
--- NOTE | 2024-10-10 08:46 | MHC.AU.HA3 ---
Hearing Instrument Follow-Up- Binaural Date of Visit: 10/09/24 Right Ear: Damion, , Color, Serial Number: David Waller [id number] SN: [id number] Color: Greenwald Director Intelligence Analysis Programs Repair Warranty: 07/04/2027 Director Intelligence Analysis Programs Loss and Damage Warranty: 07/04/2027 [facility] Service Plan: 06/18/2025 Battery Size: Rechargeable Community Health Nurse Staff/Slim Tube: 1M Earmold/Dome/CShell/SlimTip:Cap dome (no retention tail) Type of Wax Guard: CeruStop Dispensed By: [facility] Date of Fittin06/18/24 Left Ear: Damion, , Color, Serial Number: David Waller [id number] SN: [id number] Color: Greenwald Director Intelligence Analysis Programs Repair Warranty: 07/04/2027 Director [employer] Analysis [employer] Loss and Damage Warranty: 07/04/2027 [facility] Service Plan: 06/18/2025 Battery Size: Rechargeable Community Health Nurse Staff/Slim Tube: 1M Earmold/Dome/CShell/SlimTip: Cap dome (no retention tail) Type of Wax Guard: CeruStop Dispensed By: [facility] Date of Fittin06/18/24 Follow-Up Summary: Lolita reports that both of her hearing aids stopped working a week or so ago. She reports attempting to change domes and wax guards but it didn't solve the problem, concerned she did it wrong. Aids are not charged upon arrival today. Allowed aids to charge briefly so they could be checked. Charging appears normal. Both aids functioning upon removal from flat surfacer. Cleaned aids, replaced domes and wax guards for good measure. Listening check positive. Observed the right aid to be fit with a 1 S nut sheller despite notes and fitting software all indicating 1 M. Changed to 1 M. Advised patient that the aids were working and everything looked fine, that she had not harmed them with her dome and wax guard change. Lolita put the hearing aids on and indicated that they sounded good. Recommendations: Recommendations: Hearing instrument follow-up or maintenance as needed. Diagnosis Code(s): Primary Diagnosis: H90.3 Bilateral Sensorineural Hearing Loss Signature: Provider: Todd Hanson, [facility]
== END 2024-10-09 15:37 | disposition home or self-care (01) ==
LOC: HO.HAP 15:36
PROVIDERS: Visit Provider Physician Assistant Medical
DX: Z13.89 Encounter for screening for other disorder (principal)

== ENCOUNTER 2024-10-09 16:09 | Outpatient (REF) | payer SELFPAY | END 2024-10-09 16:10 | disposition home or self-care (01) | LOC: HO.SH 16:09 | PROVIDERS: Visit Provider Otolaryngology | DX: Z46.1 Encounter for fitting and adjustment of hearing aid (principal) | CPT/HCPCS: V5267 ==

== ENCOUNTER 2025-01-10 10:52 | Outpatient (REF) | payer OTHER, SELFPAY ==
--- OUTSIDE RECORDS SUMMARY | 2025-01-10 11:01 | XMS_ITS | Data Portability ---
Author Organization [place] - [facility], Allergy Address [address] [address] Care Team Providers Care Fpga Engineer Name Role Phone BRINA POLLARDA Primary Care Provider Assessment Encounter Date Assessment [...] INTERNAL AUDITORY CANAL, W/WO CONTRAST 2023 024 [facility] ([facility]), [address] [facility], [place], [address], 16:17:23 Medication Orders None recorded. Patient TargetsNo targets recorded. Patient InstructionsNo instructions recorded. Reason for Referral None Reported. Results Created Date Observation Date Name Description Value Unit Range Abnormal Flag Note LastModifiedBy Organization Detail LastModifiedTime 05/13/20 24 05/13/2024 audio gram No observ ation record ed. [email or web address] Jonas [facility] Speech & Hearing [address] [place], [address], 05/15/2024 10:37:32 05/13/20 24 10/25/2023 audio gram No observ ation record ed. BARCODE Not Available 2023 16:26:20 05/24/20 24 05/23/2024 MRI, brain + brain stem, w/wo contr ast [facility] Access ion Number : [id number] Patialexa t Name: Lolita Stevensa gatito Record Number : [id number] Date of : 1959 Date of Exam: 2023 Referr ing Physic atiya: Tarun iner, Lizzie [facility] [place] [address] [place] [address] Exam: MR Brain (C-/C+ ) CPT 15530 Room Descri ption: [facility] Espr 1.5 MR Brain (C-/C+ ) CPT 95578 INDICA TION / CLINIC AL QUESTI ON: [...] or abnorm al enhanc ement in the senior international tax manager al audito ry canals or cerebe llopon [...] BONES: Visual ized marrow signal is preser ronnei. IMPRES LAZ: No retroc ochlea r abnorm ality to explai n the patien t?s sympto ms. Electr onical ly Signed By: Adolfo Aleman MD [facility] ([facility]) [address] [facility], [place], [address], 05/30/2024 09:06:42 07/01/19 25 06/05/2024 audio gram No observ ation record ed. [email or web address] Not Available 06/19 14:32:20 07/01/19 25 05/24/2024 MRI, brain , w/wo contr ast No observ ation record ed. [email or web address] Not Available 06/19 17:05:01 Result Notes Documentation Provider Name and Address Organization Details Recorded Time Mri, Brain + Brain Stem, W/wo Contrast : [facility] Accession Number: [id number] Patient Name: Lolita Souza Date of : 1960 Date of Exam: 05-23-2024 Referring Physician: Lizzie Warner [facility] [address] [facility] [address] [place] [address] Exam: MR Brain (C-/C+) CPT 35462 Room Description: [facility] 1.5 MR Brain (C-/C+) CPT 36709 INDICATION / CLINICAL QUESTION: H90.A21 - Snsrnrl hear loss, uni, r ear, with rstrcd hear cntra side, Clinical Indication: Asymmetric sensorineural hearing loss TECHNIQUE: Multiplanar, multisequence MRI of the brain was performed with and without intravenous contrast. 15 mL Dotarem intravenous contrast was administered. COMPARISON: None. FINDINGS: IAC: There is no mass or abnormal enhancement in the internal auditory canals or cerebellopontine angles. Course and caliber of the 7th and 8th cranial nerves is normal bilaterally. Fluid signal is preserved in the inner ear structures bilaterally. Brainstem demonstrates normal signal. BRAIN and EXTRA-AXIAL SPACES: No significant abnormality of the visualized portions of the brain and extra-axial spaces. EXTRACRANIAL SOFT TISSUES: Visualized portions of the extracranial soft tissues demonstrate no acute abnormality. Symmetric lobular T2 hyperintense signal in the subcutaneous fat of the cheeks, greatest in the region of the nasolabial folds, may reflect sequelae of cosmetic injections. BONES: Visualized marrow signal is preserved. IMPRESSION: No retrocochlear abnormality to explain the patient?s symptoms. Electronically Signed By: Cathy WARNER MD [address], [place], [address], [facility] - [facility] 05/30/2024 08:58:49 Problems Name Problem SNOMED Code Status Onset [...] : 03/21/2014 10:41 AM (389.15) Not Available [facility] 4 03:04:34 Sensorine ural hearing loss in right ear 33656571051 100 Active 2023 LIZZIE WARNER MD [address], [place], [address] , [facility] - [facility] 4 10:30:42 Bilateral tinnitus 57743881467 02 Active 2023 LIZZIE WARNER MD [address] [facility] [address], [place], [address] , [facility] - [facility] 4 10:31:35 Asymmetri taylor sensorine ural hearing loss 592602693 Active 2024 DEACON PUCKETT PA-C [address], [place], [address] , [facility] - [facility] 5 13:15:34 Problem Notes None recorded. Medical Equipment None Reported. [...] Available Vitals Date Recorded Body height Body weight Provider Name and Address Organization Details Last Updated DateTime 06/28/2024 162.56 cm 36145.22 g Radha Perez [place] - [facility] 06/28/2024 12:56:52 Date Recorded Body height Body mass index (BMI) Body weight Provider Name and Address Organization Details Last Updated DateTime 05/14/2024 162.56 cm 26.4 kg/m2 18544.22 g Marika Brewer [place] - [facility] 05/14/2024 10:11:05 Social History None recorded. Functional Status None recorded. Mental Status None recorded. Family History Nothing Reported. Medical History Condition Response Allergies/Hayfever Y Heart Problems N Anxiety Y Tonsil Infections N Emphysema N Migraines N Thyroid Problems N Glaucoma N Depression N COPD N Developmental Delay N Nasal or Sinus Problems N Anemia N Immune System Disorder N Anesthesia Complications N Heart Attack (AR) N Other Skin Condition N Diabetes N [...] SNOMED-CT Code Diagnosis ICD10 Code Diagnosis Note [id number] LIZZIE WARNER MD [facility] [address] [address] 05/14/2024 09:53:03 05/14/2024 10:40:25 Sensorineural hearing loss in right ear 5723709688 9100 H90.A21 Given the asymmetric hearing loss I recommend an MRI IAC with contrast to evaluate for retrocochl ear pathology. We will review results when complete. Bilateral tinnitus 43608 66882 102 H93.13 Ear exam was normal. Audiogram was reviewed. We discussed the associatio n between sensorineu ral hearing loss and tinnitus. We discussed masking for tinnitus. [id number] DEACON PUCKETT PA-C [facility] [address] [address] 06/28/2024 12:55:36 06/28/2024 13:15:20 Bilateral tinnitus 2660395702 102 H93.13 Asymmetric al sensorineural hearing loss 020820537 H90.5 Health Concerns Section Related Observation LastModified by Organization Detai ls LastModified Time None Recorded Concern Status LastModified by Organization Details LastModified Time None Recorded Advance Directives Directive None Recorded Payers Insurance Date Sequence Insurance Name Policy Number Policy Tee Covered Member ID Tee Member ID Guarantor Name 05/14/2024 2 [place] [facility] Lolita Souza [id number] Lolita V Romani 06/26/2024 1 [facility] (MEDICAID REPLACEMENT - HMO) [facility] Lolita Souza [id number] Lolita Souza Notes Date Note Type Note Provider Name and Address Organization Details Recorded Time 05/14/2024 text/html ROS as noted in the HPI She reports gradual hearing loss over time. About 7 years ago she noted some asymmetry. She had an audiogram 10/2023 which showed asymmetric SNHL worse AD. Has tinnitus AU. It varies in intensity. She has not yet used hearing aids. Her mother has hearing loss. Hx loud noise exposure as a child when she was younger. LIZZIE WARNER MD [address] [place] [address], [place], [address], [place] - [facility] 05/14/2024 10:36:46 06/28/2024 text/html ROS as noted in the HPI 64 year old female presents to the office to review her [...] happens to both ears. LIZZIE WARNER MD [address] [place] [address], [phone], [facility] 06/28/2024 14:23:35 OBGyn Episode No OBEpisode recorded.
--- OUTSIDE RECORDS SUMMARY | 2025-01-10 11:01 | XMS_ITS | Clinical Summary ---
Author Organization [facility] Address [address] [place] [address] Phone Care Team Providers Care Superintendent Menagerie Name Role Phone Madelyn Hogan MD Primary [...] mouth 1 (one) time each day. Active hydroCHLOROthia zide (MICROZIDE) 12.5 mg capsule Take 1 capsule (12.5 mg total) by mouth 1 (one) time each day in the morning. 90 capsule 1 09/20/19 25 Active amLODIPine (NORVASC) 5 mg tablet Take 1 tablet (5 mg total) by mouth 1 (one) time each day. 09/25/19 25 025 Active docusate sodium (COLACE) 100 mg capsule Take 1 capsule (100 mg total) by mouth 1 (one) time each day. Active omega 0-xah-jaf-fish oil 900 mg-360 mg- 455 mg-1,000 mg capsule Take 1 capsule by mouth 1 (one) time each day. Active pumpkin seed oil/saw palmetto (SAW PALMETTO-PUMPKI N SEED OIL ORAL) Take 1 capsule by mouth 1 (one) time each day. Active minoxidiL (ROGAINE) 2 % external solution Apply topically 2 (two) times a day. Active clonazePAM (KlonoPIN) 1 mg tablet Take 1 tablet (1 mg total) by mouth 1 (one) time each day if needed for anxiety. Max Daily Amount: 1 mg 5 tablet 12/18/19 25 Active vit D3/vit K2/calc frutoborate (VIT D3-VIT K2-CA FRUCTOBORATE ORAL) Take by mouth. Active busPIRone (BUSPAR) 5 mg tabletIndicatio ns:Chronic anxiety Take once daily 30 tablet 10/25/19 25 025 Discontinued clonazePAM (KlonoPIN) 1 mg tablet Take 1 tablet (1 mg total) by mouth 1 (one) time each day if needed for anxiety. Max Daily Amount: 1 mg 5 tablet 11/05/19 25 025 Discontinued(Re order) Active Problems Problem Noted Date Diagnosed Date Pain associated with defecation 02/24/2023 Hyperlipidemia 08/31/2020 Overview (05/28/2024): 5%, if smoking continues- 10.3% Pulmonary nodule 12/07/2017 Overview (05/28/2024): RLL, LungRad Category 2, 10/07/2016 Lung CA Screen Program, continue annual screening. Anxiety 09/29/2017 Overview (05/28/2024): Panic disorder 07/14/2017 HTN (hypertension) 09/29/2017 Overview (05/28/2024): Ascvd 2.4% Encounters Date Type Department Care Team Description 01/03/2025 10:00 AM EDT Office Visit Adult Medicine [address] [phone] John Granados PA Routine general medical examination at a health care facility (Primary Dx); Primary hypertension 10/24/2024 3:30 PM EDT Office Visit Adult [address] [phone] Madelyn Hogan MD Primary hypertension (Primary Dx); Chronic anxiety from Last 3 Months Immunizations Name Administration [...] 23 valent (Pneumovax 23) 2yo and older 11/13/2008,11/13/2008 Tdap Tetanus diptheria acell ular pertussis (Boostrix; Adacel) 7yo and older 12/15/2017,12/15/2017,07/14/2017,09/23,09/24/2007,09/24/2007 Surgical History Surgery Date Site/Laterality Comments TUBAL [...] drink = 0.6 oz pur e alcohol) Housing Instability Answer Date Recorde d Are you worried that in the next 2 months you may not have stable housing? No 10/24/2024 Food Access & Nutrition Answer Date Rec orded Do you have access to a vari ety of food including fruits and vegetables? Yes 10/24/2024 Access to Healthcare Answer Date Record ed Within the last 3 months, ho sirisha many times did you visit the emergency department for your medical care? 0 10/24/2024 Health Literacy Answer Date Recorded How often do you need to hav e someone help you when you read instructions, pamphlets, or other written material from your doctor or pharmacy? Sometimes 10/24/2024 Caregiver: How often do you need to have someone help you when you read instructions, pamphlets, or other written material from your doctor or pharmacy? Not on file 10/24/2024 Financial Risk Answer Date Recorded How hard is it for you to pa y for the very basics like food, housing, medical care, and air conditioning / heating? Not very hard 10/24/2024 Transportation Answer Date Recorded Has the lack of transportati on kept you from meetings, work, or from getting things needed for daily living? No Has the lack of transportati on kept you from medical appointments or from getting medications? No 10/24/2024 Social Isolation Answer Date Recorded How often do you feel lonely or isolated from those around you? Sometimes 10/24/2024 Food Risk Answer Date Recorded Within the past 12 months we worried whether our food would run out before we got money to buy more. Never true 10/24/2024 Within the past 12 months th e food we bought just didn't last and we didn't have money to get more. Never true 10/24/2024 Dependent Care Answer Date Recorded Do you need help finding or paying for care for your loved ones. For example, child care coordinator or elderly care for an older adult? Yes 10/24/2024 Education Answer Date Recorded Do you think completing more education or training, like finishing a GED, going to college, or learning a trade, would be helpful for you? N/A 10/24/2024 Employment and Income Answer Date Recor ded During the last four weeks, have you been actively looking for work? No 10/24/2024 Living Situation Answer Date Recorded What is your living situation? 0 10/24/2024 Comments No Sex and Gender Information Value Date Recorded Sex Assigned at Not on file Legal Sex Female 6:01 PM EST Gender Identity Not on file Sexual Orientation Not on file Obstetrics History Last Filed Vital Signs Vital Sign Reading Time Taken Comments Blood Pressure 132/82 01/03/2025 10:03 AM EDT Pulse 68 01/03/2025 10:03 AM EDT Temperature 36.4 C (97.6 F) 01/03/2025 10:03 AM EDT Respiratory Rate 16 10/24/2024 3:08 PM EDT Oxygen Saturation 97% 01/03/2025 10:03 AM EDT Inhaled Oxygen Concentration - - Weight 70.3 kg (155 lb) 01/03/2025 10:03 AM EDT Height 162.6 cm (5' 4 ) 01/03/2025 10:03 AM EDT Body Mass Index 26.61 01/03/2025 10:03 AM EDT Plan of Treatment Upcoming Encounters Date Type Department Care Team (Late st Contact Info) Description 02/24/2025 10:00 AM EDT Office Visit Obstetrics & Gynecology - [address] [phone] CNM [address] [place] [address] 07/07/2025 8:45 AM EST Office Visit Adult Medicine - [place] [address] [place] [phone] Madelyn Hogan MD [address] [facility] [place] [address] Health Maintenance Due Date Last Done Comments Pneumococcal Vaccine: 50+ Years (2 of 2 - PCV) 2010 11/13/2008, 11/13/2008 Zoster Vaccines (1 of 2) 2010 HIV Screening 05/28/2022 COVID-19 Vaccine (4 - season) 2024 06/15/2021, 08/18/2020, 07/25/2020 Influenza Vaccine (#1) 2025 , 04/21/2020, 07/14/2017, Additional history exists Hypertension/CHF/CAD Annual BMP Blood Test 09/10/2025 09/10/2024, 08/07/2024, 12/15/2023, Additional history exists Social Influencers of Health Screening 10/24/2025 10/24/2024 Cervical Cancer Screening: HPV 05/10/2026 05/10/2021 Breast Cancer Screening 08/20/2026 08/20/2024 DTaP,Tdap,and Td Vaccines (7 - Td or Tdap) 12/16/2027 12/15/2017, 12/15/2017, 07/14/2017, Additional history exists Cholesterol Screening (Lipid Panel) 09/10/2029 09/10/2024, 12/15/2023, 12/15/2023 Colorectal Cancer Screening: Colonoscopy 03/07/2033 03/07/2023 RSV Immunization Adult Patients (1 - 1-dose 75+ series) 2035 Hepatitis C Screening Completed 11/03/2017 Depression Screening Completed 10/24/2024, 12/15/19 24 HIB Vaccines Aged Out No longer eligi [...] EDT Primary hypertension EXTERNAL MAMMOGRAM REPORT 08/20/2024 DEPRESSION SCREENING Routine 12/15/2023 COLONOSCOPY Routine 03/07/2023 HPV Routine 05/10/2021 HEPATITIS C SCREENING Routine 11/03/2017 from Last 3 Months or Most Recently Relevant to Health Maintenance Results * (ABNORMAL) Lipid panel with reflex to direct LDL (09/10/2024 11:01 AM EDT) Cholesterol 205(H) 0 - 200 mg/dL LAB CHEMISTRY METHOD 09/10/2024 4:21 PM EDT [facility] Triglycerides 86 0 - 150 mg/dL LAB CHEMISTRY METHOD 09/10/2024 4:21 PM EDT [facility] HDL 59 >=40 mg/dL LAB CHEMISTRY METHOD 09/10/2024 4:21 PM EDT [facility] LDL Calculated 129(H) 0 - 100 mg/dL LAB CHEMISTRY METHOD 09/10/2024 4:[address] [facility] VLDL Cholesterol Jules 17.2 mg/dL LAB CHEMISTRY METHOD 09/10/2024 4:21 PM EDT [facility] Non HDL Chol. (LDL+VLDL) 146(H) <145 mg/dL LAB CHEMISTRY METHOD 09/10/2024 4:[address] [facility] Chol/HDL Ratio 3.5 0.0 - 4.4 LAB CHEMISTRY METHOD 09/10/2024 4:[address] [facility] Blood Venous blood specimen / Unknown Venipuncture / Unknown 09/10/2024 11:01 AM EDT 09/10/2024 11:01 AM EDT us Madelyn Hogan MD LAB BLOOD ORDERABLES F inal Result [facility] [address] [place] [address], [place] [phone] * Comprehensive metabolic panel (09/10/2024 11:01 AM EDT) Sodium 136 133 - 145 mmol/L LAB CHEMISTRY METHOD 09/10/2024 4:[address] [facility] Potassium 3.7 3.5 - 5.5 mmol/L LAB CHEMISTRY METHOD 09/10/2024 4:[address] [facility] Chloride 102 96 - 110 mmol/L LAB CHEMISTRY METHOD 09/10/2024 4:[address] [facility] CO2 27 21 - 32 mmol/L LAB CHEMISTRY METHOD 09/10/2024 4:[address] [facility] Anion Gap 7 3 - 11 LAB CHEMISTRY METHOD 09/10/2024 4:[address] [facility] Glucose 84 70 - 100 mg/dL LAB CHEMISTRY METHOD 09/10/2024 4:[address] [facility] BUN 16 5 - 25 mg/dL LAB CHEMISTRY METHOD 09/10/2024 4:[address] [facility] Creatinine 0.74 0.50 - 1.10 mg/dL LAB CHEMISTRY METHOD 09/10/2024 4:[address] [facility] eGFR 90 >=60 mL/min/1. 73m2 LAB CHEMISTRY METHOD 09/10/2024 4:[address] [facility] Comment:Calculation based on the Chronic Kidney Disease Epidemiology Collaboration (CKD-EPI) equation refit without adjustment for race. BUN/Creatinine Ratio 21.6 LAB CHEMISTRY METHOD 09/10/2024 4:[address] [facility] Calcium 9.0 8.5 - 10.5 mg/dL LAB CHEMISTRY METHOD 09/10/2024 4:[address] [facility] AST (SGOT) 15 10 - 42 unit/L LAB CHEMISTRY METHOD 09/10/2024 4:[address] [facility] ALT (SGPT) 25 10 - 60 unit/L LAB CHEMISTRY METHOD 09/10/2024 4:[address] [facility] Alkaline Phosphatase 69 42 - 121 unit/L LAB CHEMISTRY METHOD 09/10/2024 4:[address] [facility] Total Protein 7.1 6.0 - 8.0 g/dL LAB CHEMISTRY METHOD 09/10/2024 4:[address] [facility] Albumin 4.3 3.2 - 5.0 g/dL LAB CHEMISTRY METHOD 09/10/2024 4:[address] [facility] Total Bilirubin 0.6 0.0 - 1.4 mg/dL LAB CHEMISTRY METHOD 09/10/2024 4:[address] [facility] Blood Venous blood specimen / Unknown Venipuncture / Unknown 09/10/2024 11:01 AM EDT 09/10/2024 11:01 AM EDT us Madelyn Hogan MD LAB BLOOD ORDERABLES F inal Result [facility] [address] [place] [address], * External Mammogram Report (08/20/2024) Anatomical Region Laterality Modality Mammography Provider Avelina Onbase IMG BI PROCEDURES Final Result * Depression Screening (12/15/2023) Pathologist [facility] Depression Screening abstracted [facility] Provider HEALTH MAINTENANCE Final Result * Colonoscopy (03/07/2023) Pathologist [facility] Colonoscopy normal, abstracted Anatomical Region Laterality Modality Other [facility] Provider HEALTH MAINTENANCE Final Result * Cervical Cancer Screening: HPV (05/10/2021) [facility] Cervical Cancer Screening: HPV negative, abstracted Result [facility] Provider HEALTH MAINTENANCE Final Result * Hepatitis C Screening (11/03/2017) Pathologist [facility] Hepatitis C Screening abstracted [facility] Provider HEALTH MAINTENANCE Final Result from Last 3 Months or Most Recently Relevant to Health Maintenance Insurance [facility] [employer] Care Teams Superintendent Menagerie Relationship Specialty Start Date End Date Madelyn Hogan MD [facility] [place] [address] PCP - General Internal Medicine 05/07/24
--- OUTSIDE RECORDS SUMMARY | 2025-01-10 11:01 | XMS_ITS ---
Author Name [facility] Organization Unknown Care Team Organization Name Specialty Phone Email Start Date End Da te [facility] Marquis Ballard DO Primary Care 10/24/202201/17 [facility] Madelyn Hogan MD Primary Care 04/26/2022 02/05/2024
== END 2025-01-10 10:53 | disposition home or self-care (01) ==
LOC: HO.HAP 10:52
PROVIDERS: PCP Family Medicine; Visit Provider Otolaryngology
DX: Z46.1 Encounter for fitting and adjustment of hearing aid (principal); H90.3 Sensorineural hearing loss, bilateral
CPT/HCPCS: 92593